=== PATIENT | female | born 1990 | race African-American/Black ===

== ENCOUNTER 2018-04-05 09:16 | Emergency (ER) | payer OTHER ==
[~2018-04-05] VITALS: Ht 162.6 cm; Wt 54.4 kg
[~2018-04-05 09:16] MED LIST: ALEVE220 MG PO; AMOXICILLIN 50500 M1 PO; AMOXICILLIN500 M1 PO; APAP/CODEINE ELI5 M1 OR; APAP500 PO; CIPRO500 MG PO; CIPROFLOXACIN500 M1 PO; CLARITIN10 MG PO; COLACE 100 MG100 MG PO; DERMOPLAST SPRA56 ML TOP; DIFLUCAN150 M1 PO; FLAGYL500 MG PO; IBUPROFEN 600600 M1 PO; IBUPROFEN200 M2 PO; LANOLIN56 GM TOP; MACROBID 100 M100 M1 PO; NOHOMEMEDICATIONS; NORCO 5-325 TA1 EACH PO; OSELB75 PO; PREDNISONE 20 M20 M1 PO; PRENATAL PO; PRILOSEC20 MG PO; PYRIDIUM100 M1 PO; PYRIDIUM200 MG PO; TAMIFLU PO; TUCKS1 EAC1 TOP; ULTRAM 50MG TAB50 MG PO; ZANTAC 150MG T150 MG PO; ZOFRAN4 MG PO; ZPAK PO
[2018-04-05 09:35] LABS: URINE BILIRUBIN NEGATIVE (Negative); URINE BLOOD NEGATIVE (Negative); URINE CLARITY CLEAR; URINE COLOR YELLOW; URINE GLUCOSE-RANDOM* NEGATIVE (Negative); URINE KETONES NEGATIVE (Negative); URINE LEUKOCYTES-REFLEX NEGATIVE (Negative); URINE NITRITE-REFLEX NEGATIVE (Negative); URINE PROTEIN (DIPSTICK) NEGATIVE (Negative); URINE SPECIFIC GRAVITY 1.015 (1.005-1.035)
[2018-04-05 10:01] LABS: CASTS None Seen /LPF (None Seen); MUCUS 4-6 Moderate strn/LPF (None Seen); SQUAMOUS >10 Many /LPF (0-3)
[2018-04-05 10:02] LABS: BACTERIA 1-9 Few /HPF (None Seen); CRYSTALS None Seen /LPF (None Seen); URINE RBC 0-2 Rare /HPF (0-2); URINE WBC 0-5 Rare /HPF (0-5)
[2018-04-05] MEDS ORDERED: KEFLEX500 M1 PO (10:06)
[2018-04-05] MEDS ORDERED: PHENAZOPYRIDIN200 M2 PO (10:06)
[2018-04-05 10:15] VITALS: BP 114/69
== END 2018-04-05 10:15 | disposition home or self-care (01) ==
LOC: ER 09:16
PROVIDERS: Emergency Medicine
DX: R30.0 Dysuria (principal); F17.210 Nicotine dependence, cigarettes, uncomplicated; Z88.2 Allergy status to sulfonamides; Z88.8 Allergy status to other drugs, medicaments and biological substances

== ENCOUNTER 2018-04-28 16:58 | Emergency (ER) | payer OTHER ==
[~2018-04-28] VITALS: Ht 162.6 cm; Wt 54.4 kg
[~2018-04-28 16:58] MED LIST changes: +KEFLEX500 M1 PO; +PHENAZOPYRIDIN200 M2 PO
[2018-04-28 17:14] LABS: URINE BILIRUBIN NEGATIVE (Negative); URINE BLOOD TRACE (Negative); URINE CLARITY CLEAR; URINE COLOR YELLOW; URINE GLUCOSE-RANDOM* NEGATIVE (Negative); URINE KETONES NEGATIVE (Negative); URINE LEUKOCYTES-REFLEX NEGATIVE (Negative); URINE NITRITE-REFLEX NEGATIVE (Negative); URINE PROTEIN (DIPSTICK) NEGATIVE (Negative); URINE SPECIFIC GRAVITY 1.025 (1.005-1.035)
[2018-04-28] MEDS ORDERED: MOBIC7.5 MG PO (18:13)
[2018-04-28 18:20] VITALS: BP 127/79
== END 2018-04-28 18:21 | disposition left against medical advice (07) ==
LOC: ER 16:58
PROVIDERS: Physician Assistant
DX: R30.0 Dysuria (principal); R39.11 Hesitancy of micturition; R51 Headache; F17.210 Nicotine dependence, cigarettes, uncomplicated; Z88.2 Allergy status to sulfonamides; Z88.8 Allergy status to other drugs, medicaments and biological substances

== ENCOUNTER 2018-05-20 03:39 | Emergency (ER) | payer OTHER ==
[~2018-05-20] VITALS: Ht 162.6 cm; Wt 54.4 kg
[~2018-05-20 03:39] MED LIST changes: +MOBIC7.5 MG PO
[2018-05-20 04:51] LABS: URINE BILIRUBIN NEGATIVE (Negative); URINE BLOOD NEGATIVE (Negative); URINE CLARITY SL CLOUDY; URINE COLOR YELLOW; URINE GLUCOSE-RANDOM* NEGATIVE (Negative); URINE KETONES TRACE (Negative); URINE LEUKOCYTES-REFLEX NEGATIVE (Negative); URINE PROTEIN (DIPSTICK) TRACE (Negative); URINE SPECIFIC GRAVITY >= 1.030 (1.005-1.035); URINE UROBILINOGEN 0.2 E.U./dl (0.2-1.0)
[2018-05-20 04:53] LABS: URINE NITRITE-REFLEX POSITIVE (Negative)
[2018-05-20 04:58] LABS: BACTERIA-REFLEX >30 Many /HPF (None Seen); CASTS None Seen /LPF (None Seen); CRYSTALS None Seen /LPF (None Seen); MUCUS 4-6 Moderate strn/LPF (None Seen); SQUAMOUS 4-10 Moderate /LPF (0-3); URINE RBC None Seen /HPF (0-2); URINE WBC-REFLEX 0-5 Rare /HPF (0-5)
[2018-05-20] MEDS ORDERED: KEFLEX500 M1 PO (05:00)
[2018-05-20] MEDS ORDERED: PYRIDIUM200 MG PO (05:01)
== END 2018-05-20 05:13 | disposition home or self-care (01) ==
LOC: ER 03:39
PROVIDERS: Emergency Medicine
DX: R51 Headache (principal); N39.0 Urinary tract infection, site not specified; F17.210 Nicotine dependence, cigarettes, uncomplicated; Z88.2 Allergy status to sulfonamides; Z88.8 Allergy status to other drugs, medicaments and biological substances

== ENCOUNTER 2021-09-07 00:17 | Emergency (ER) | payer OTHER ==
[~2021-09-07] VITALS: Ht 162.6 cm; Wt 54.4 kg
[2021-09-07 01:31] LABS: URINE BILIRUBIN NEGATIVE (Negative); URINE BLOOD NEGATIVE (Negative); URINE CLARITY CLEAR; URINE COLOR YELLOW; URINE GLUCOSE-RANDOM* NEGATIVE (Negative); URINE KETONES 1+ (Negative); URINE LEUKOCYTES-REFLEX NEGATIVE (Negative); URINE NITRITE-REFLEX NEGATIVE (Negative); URINE PROTEIN (DIPSTICK) NEGATIVE (Negative); URINE SPECIFIC GRAVITY >= 1.030 (1.005-1.035); URINE UROBILINOGEN 0.2 E.U./dl (0.2-1.0)
[2021-09-07] MEDS ORDERED: ZOFRAN ODT4 MG PO (03:45)
[2021-09-07 03:55] VITALS: BP 110/67
== END 2021-09-07 04:05 | disposition home or self-care (01) ==
LOC: ER 00:17
PROVIDERS: Emergency Medicine
DX: O36.5910 Maternal care for other known or suspected poor fetal growth, first trimester, not applicable or unspecified (principal); Z3A.01 Less than 8 weeks gestation of pregnancy; R11.10 Vomiting, unspecified; F17.210 Nicotine dependence, cigarettes, uncomplicated; Z79.899 Other long term (current) drug therapy; Z88.2 Allergy status to sulfonamides; Z88.8 Allergy status to other drugs, medicaments and biological substances